=== PATIENT | male | born 1975 | race Caucasian/White ===

== ENCOUNTER 2019-08-27 10:06 | Emergency (ER) | payer OTHER ==
[~2019-08-27] VITALS: Ht 167.6 cm; Wt 93.9 kg
[2019-08-27 10:27] VITALS: BP 133/88
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
[2019-08-27] MEDS ORDERED: Ketorolac 30mg Inj IM ONE (10:45)
[2019-08-27] MEDS ORDERED: ROBAXIN-500MG ORAL (12:27)
[2019-08-27] MEDS ORDERED: IBUPROFEN600 M1 ORAL (12:27)
--- NOTE | 2019-08-27 12:33 | Diagnostic Imaging Report ---
Indication: Trauma, pain Technique: 3 views of the cervical spine Comparison: none Findings: Bony alignment is normal. Vertebral body heights are preserved. The disc spaces are preserved. No prevertebral soft tissue swelling Impression: Negative
[2019-08-27 12:35] VITALS: BP 137/71
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
== END 2019-08-27 12:35 | disposition home or self-care (01) ==
LOC: EMR 12:00
DX: S16.1XXA Strain of muscle, fascia and tendon at neck level, initial encounter (principal); S39.012A Strain of muscle, fascia and tendon of lower back, initial encounter; S80.211A Abrasion, right knee, initial encounter; S60.412A Abrasion of right middle finger, initial encounter; V44.5XXA Car driver injured in collision with heavy transport vehicle or bus in traffic accident, initial encounter; Y92.411 Interstate highway as the place of occurrence of the external cause
CPT/HCPCS: 72020; 72040; 96372; 99284; J1885